=== PATIENT | female | born 1995 | race Caucasian/White ===

== ENCOUNTER 2023-03-07 16:26 | Emergency (ER) | payer BC, OTHER ==
--- OUTSIDE RECORDS SUMMARY | 2023-03-07 16:29 | XMS REPORT | Continuity of Care Document ---
:1995 Author Organization [facility] t Address [address] [place] [id number] [place] [id number] Care Team Providers Name Role Phone PCP, PATIENT DOES NOT HAVE A Primary Care Physician Unavaila CHELSEA Morin Attending Clinician Unavailable [id number] Attending Clinician Unavailable Kandis Villeda RN Attending Clinician Unavailable Genet Yu Attending Clinician GENET TABOR Attending Clinician Unavailable Doctor Unassigned, [place] Attending Clinician Unavailable Payers Payer Name Policy Type Policy Number Effective Date Expiration Date S keyon [facility] 2 [id number] 2022 00:00:00 MULTIPLAN GENERIC [id number] 2016 00:00:00 Problems Condition Condition Condition Status Onset Resolution Last Treating Co mments Source Name Details Category Date Date Treatment Clinician Date Acute Acute Disease Active 2021-06 Sushma pharyngiti pharyngiti 0-03 Se ybold s due to s due to 00:00: - other other 00 Externa specified specified l organisms organisms Non-recurr Non-recurr Disease Active 2021-06 Reynaldo palmer ent acute ent acute 0-03 Seyb old suppurativ suppurativ 00:00: - e otitis e otitis 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 left ear without without spontaneou spontaneou s rupture s rupture of of tympanic tympanic membrane membrane Pharyngiti Pharyngiti Disease Active 2022-1 K elsey s s 0-03 Seybold 00:00: - 00 Externa l Epigastric Epigastric Disease Active U nivers pain pain 8-08 ity of 00:00: Medical Branch Elevated Elevated Disease Active Unive rs blood blood 6-20 ity of sugar sugar 00:00: Medical Branch Dizziness Dizziness Disease Active Uni vers 6-20 ity of 00:00: Medical Branch Allergies, Adverse Reactions, Alerts Allergy Allergy Status Severity Reaction(s) Onset Inactive Treating Comm ents Source Name Type Date Date Clinician Codeine Propensi Active 2021-06 Sushma ty to 0-03 Seybold adverse 00:00: - reaction 00 Externa s l Ondanset Propensi Active Itching 2021-06 Poli motta ty to 0-03 Seybold adverse 00:00: - reaction 00 Externa s l CODEINE DRUG Active Unknown-Cmnt Uni vers INGREDI 9- ity of 00:00: Medical Branch METOCLOP DRUG Active Anxiety Univers RAMIDE INGREDI 9- ity of HCL 00:00: Medical Branch Codeine Propensi Active Unknown - pancreati U nivers ty to See comments 03-07 tis ity of adverse 00:00: [place] reaction 00 Medical s Branch Metoclop Propensi Active Anxiety Unive rs ramide ty to 9- ity of Hcl adverse 00:00: [place] reaction 00 Medical s Branch Social History Social Habit Start Date Stop Date Quantity Comments Source History of Sushma Johns - tobacco use External Alcohol intake 2022-04-19 2022-04-19 Lifetime Sushma Hung bold - 00:00:00 00:00:00 non-drinker External (finding) Tobacco use and 2022-03-18 2022-03-18 Smokeless tobacco Ke jose Samsonold - exposure 00:00:00 00:00:00 non-user External Exposure to 2021-12-02 2021-12-12 Not sure [facility]-CoV-2 00:00:00 13:45:00 [place] [facility] (event) [facility] Tobacco Comment 2015-12-04 2015-12-04 not consecutive- Uni versity of 00:00:00 00:00:00 just trying it [facility] Sex Assigned At [birth year] Sushma tellez - 00:00:00 00:00:00 External Smoking Status Start Date Stop Date Source Smokes tobacco daily 2022-03-18 00:00:00 Sushma Johns - External Former smoker 2015-12-04 00:00:00 2015-12-04 00:00:00 [facility] acute hospital Medications Ordered Filled Start Stop Current Ordering Indication Dosage Frequency Signature Comments Components Source Medication Medication Date Date Medication? Clinician (SIG) Name Name Amoxicillin 2021-06 Yes [id number] 1{tbl} Take 1 Sushma -Pot 1-04 tablet by Seybold Clavulanate 00:00: mouth 2 - 875-125 MG 00 times Externa oral Tablet daily l Amoxicillin 2021-06 Yes [id number] 1{tbl} Take 1 Sushma -Pot 0-03 tablet by Seybold Clavulanate 00:00: mouth 2 - 875-125 MG 00 times Externa oral Tablet daily l Benzonatate 2021-06 Yes [id number] 100mg Q.[id number] Take 1 Sushma (Tessalon 0-03 [id number] capsule S jacobbold Perles) 100 00:00: 3D (100 mg - MG oral 00 total) by Externa Capsule mouth 3 l times daily as needed for cough Amoxicillin 2021-06- No [id number] 1{tbl} Take 1 Sushma -Pot 0-03 11-04 tablet by Seybold Clavulanate 00:00: 00:00 mouth 2 - 875-125 MG 00 :00 times Externa oral Tablet daily l Benzonatate 2021-06- No [id number] 100mg Q.[id number] Take 1 Sushma (Tessalon 0-03 11-04 [id number] capsule Seybold Perles) 100 00:00: 00:00 3D (100 mg - MG oral 00 :00 total) by Externa Capsule mouth 3 l times daily as needed for cough ibuprofen 2021- No [id number] 600mg U nivers (IBU) 12-12 ity of tablet 600 19:17: 19:34 [place] mg 00 :00 [facility] ibuprofen 2021- No [id number] 600mg 600 mg, Univers (IBU) 12-12 Oral, ity of tablet 600 19:17: 19:34 ONCE, 1 Leonardo as mg 00 :00 dose, On Medical Wed Branch 12/12/21 at 1430, Routine LIPASE/PROT 2015-06 Yes Take by Uni vers EASE/AMYLAS 07-13 mouth. ity of E (CREON 16:26: [place] ORAL) 00 Medical Branch LIPASE/PROT 2015-06 Yes Take by Uni vers EASE/AMYLAS 07-13 mouth. ity of E (CREON 16:26: [place] ORAL) 00 Medical Branch LIPASE/PROT 2015-06 Yes Take by Uni vers EASE/AMYLAS 28 mouth. ity of E (CREON 16:26: [place] ORAL) 00 Medical Branch LIPASE/PROT 2015-06 Yes Take by Uni vers EASE/AMYLAS 07-13 mouth. ity of E (CREON 16:26: [place] ORAL) 00 Medical Branch NUVARING Yes Univers 0.12-0.015 6-02 ity of mg/24 hr 00:00: [place] vaginal 00 Medical insert Branch NUVARING Yes Univers 0.12-0.015 6-02 ity of mg/24 hr 00:00: [place] vaginal 00 Medical insert Branch NUVARING 0 Yes Univers 0.12-0.015 6-02 ity of mg/24 hr 00:00: [place] vaginal 00 Medical insert Branch NUVARING 0 Yes Univers 0.12-0.015 6-02 ity of mg/24 hr 00:00: [place] vaginal 00 Medical insert Branch Vital Signs Vital Name Observation Time Observation Value Comments Source Systolic blood 2022-04-19 20:23:00 94 mm[Hg] Sushma Johns - pressure External Diastolic blood 2022-04-19 20:23:00 64 mm[Hg] Poli Johns - pressure External Heart rate 2022-04-19 20:23:00 92 /min Sushma gutierrez - External Body temperature 2022-04-19 20:23:00 36.56 Jessica Jessica Johns - External Respiratory rate 2022-04-19 20:23:00 14 /min Jessica oJhns - External Body height 2022-04-19 20:23:00 160 cm Sushma S eybold - External Body weight 2022-04-19 20:23:00 72.576 kg Sushma Nguyen eybold - External BMI 2022-04-19 20:23:00 28.34 kg/m2 Sushma S eybold - External Systolic blood 2022-03-18 16:36:00 139 mm[Hg] Sushma Seybold - pressure External Diastolic blood 2022-03-18 16:36:00 76 mm[Hg] Poli y Seybold - pressure External Heart rate 2022-03-18 16:36:00 110 /min Sushma S eybold - External Body temperature 2022-03-18 16:36:00 37.22 Jessica Jessica ey Seybold - External Respiratory rate 2022-03-18 16:36:00 14 /min Jessica james Seybold - External Body height 2022-03-18 16:36:00 160 cm Sushma Nguyen eybold - External Body weight 2022-03-18 16:36:00 74.118 kg Sushma Nguyen eybold - External BMI 2022-03-18 16:36:00 28.95 kg/m2 Sushma Nguyen eybold - External Oxygen saturation in 2022-03-18 16:36:00 99 /min Sushma Johns - Arterial blood by External Pulse oximetry Systolic blood 2021-12-12 19:00:00 113 mm[Hg] Univer sity of [facility] Diastolic blood 2021-12-12 19:00:00 77 mm[Hg] Unive rsity of [facility] Heart rate 2021-12-12 19:00:00 123 /min General acute hospital Body temperature 2021-12-12 19:00:00 38.56 Jessica Univ ersity of [facility] Respiratory rate 2021-12-12 19:00:00 18 /min [facility] [place] [facility] Body height 2021-12-12 19:00:00 160 cm General acute hospital Body weight 2021-12-12 19:00:00 71.804 kg General acute hospital BMI 2021-12-12 19:00:00 28.04 kg/m2 General acute hospital Oxygen saturation in 2021-12-12 19:00:00 99 /min [facility] blood by [facility] Pulse oximetry Branch Procedures Procedure Date / Time Performed Performing Clinician Sourc e POCT MOLECULAR STREP 2021-12-12 19:15:00 Genet Tabor rsity of [facility] CONSENT/REFUSAL FOR 2021-12-12 18:49:01 Doctor Unassigned, No Un i[facility]ity [facility] DIAGNOSIS AND Name Medical [place] TREATMENT Encounters Start End Encounter Admission Attending Care Care Encounter Source Date/Time Date/Time Type Type Clinicians Facility Department ID 2022-05-06 2022-05-06 Outpatient SUSHMA HERNDON [id number] Sushma 00:00:00 00:00:00 CHELSEA Seybol bjorn 2022-04-19 2022-04-19 Outpatient SUSHMA HERNDON [id number] Sushma 15:30:00 15:30:00 CHELSEA Mercerybol bjorn 2022-03-18 2022-03-18 Outpatient [id number] SUSHMA OTT [id number] Sushma 17:05:00 17:05:00 Seybol bjorn 2022-03-18 2022-03-18 Outpatient SUSHMA HERNDON [id number] Sushma 11:30:00 11:30:00 CHELSEA Seybol bjorn 2021-12-13 2021-12-13 Letter JOSETTE Villeda [id number] Univers 00:00:00 00:00:00 (Out) Kandis MCKINNON [id number] it y of [facility] [id number] Leonardo as [id number] [place] [address] Branch 2021-12-12 2021-12-12 Urgent [facility] [id number] Univers 14:20:00 14:35:48 Care [facility] [id number] i ty of [place] [id number] Leonardo as JOANNA?BLEA [phone] [address] MEDICAL OFFICE BUILDING 2021-12-12 2021-12-12 Outpatient R [facility] [id number] Univers 14:20:00 14:35:48 GENET bah o f [facility] 2021-12-12 2021-12-12 Tristan FINCH [id number] Univers 00:00:00 00:00:00 (Out) Unassigned, INO [id number] ity of [facility] [id number] Leonardo as [id number] [facility] 044 Branch 2021-12-12 2021-12-12 Orders Doctor JOSETTE [id number] Univers 00:00:00 00:00:00 Only Unassigned, INO [id number] ity of [facility] [id number] Leonardo as [id number] [facility] 009 Branch Results Test Description Test Time Test Comments Results Result Comments Source POCT MOLECULAR STREP 2021-12-12 19:23:09 Test Item Value Reference Range Interpretation Comme nts POCT Molecular Strep (test code = 25753-5) Negative Negative Lab Interpretation (test code = 18800-3) Normal [facility] [place]
[2023-03-07] MEDS ORDERED: METOCLOPRAMIDE 10 MG/2mL INJ ONE (17:11)
[2023-03-07] MEDS ORDERED: MECLIZINE HCL 12.5 MG TAB ONE (17:11)
[2023-03-07] MEDS ORDERED: NA CHLORIDE 0.9% 1,000 ML ONE ×2 (17:11→18:37)
[2023-03-07] MEDS ORDERED: ONDANSETRON 4 MG/2 ML VIAL ONE (17:21)
[2023-03-07 17:58] LABS: Absolute Lymphocytes (CBC) 2.5 K/uL (0.7-4.9); Hematocrit 40.1 % (36.0-45.0); Lymphocytes % 34.1 % (15.3-44.8); MCV 81.8 fL (80-100); MPV 9.1 fL (7.6-11.3); Platelets 214 thou/uL (152-406)
[2023-03-07 18:13] LABS: Magnesium 2.4 mg/dL (1.6-2.4); Potassium 3.7 mEq/L (3.5-5.1)
[2023-03-07] MEDS ORDERED: SCOPOLAMINE HYDROBROMIDE PATCH TD ONE (18:30)
[2023-03-07 18:46] LABS: Specific Gravity 1.015 (1.005-1.030)
[2023-03-07 19:00] LABS: Specific Gravity 1.015 (1.005-1.030); Urine Bacteria None Seen /HPF (<20); Urine Bilirubin NEGATIVE (Negative); Urine Blood Negative (Negative); Urine Clarity Turbid (Clear); Urine Color Light-Yellow (Yellow); Urine Glucose NEGATIVE (Negative); Urine Protein NEGATIVE (Negative); Urine RBC <5 /HPF (None Seen); Urine Urobilinogen Normal (Normal); Urine pH 6.5 (5.0-7.0)
--- NOTE | 2023-03-07 19:28 | RAD REPORT ---
EXAM DESCRIPTION: CT - Head Brain Wo Cont - 03/07/2023 7:16 pm CLINICAL HISTORY: Dizziness COMPARISON: none TECHNIQUE: Computed axial tomography of the head was obtained. IV contrast was not requested. All CT scans are performed using dose optimization technique as appropriate and may include automated exposure control or mA/KV adjustment according to patient size. FINDINGS: An intracranial bleed is not seen The ventricles are normal in caliber No significant hypodense areas within the brain visualized No extra-axial fluid collection is noted. Fluid within the sinuses/ mastoids is not seen IMPRESSION: No acute intracranial abnormality is seen If patient's symptoms persist MRI of the brain would be recommended
--- NOTE | 2023-03-07 20:05 | EDPHYS ---
Physician Documentation [facility] Name: Rk Delgado Age: 27 yrs Sex: Female : 1995 Arrival Date: 03/07/2023 Time: 16:26 Bed 14 Private MD: ED Physician hGanshyam Lundberg HPI: 03/07 16:50 This 27 yrs old Female presents to ER via Wheelchair with complaints of Dizziness, cp Nausea. 16:50 The patient presents with dizziness, lightheadedness, feeling off balance. cp 16:50 Onset: The symptoms/episode began/occurred this morning, upon awakening at 0500. cp 16:50 Associated signs and symptoms: Pertinent positives: confusion, headache, nausea, cp Pertinent negatives: blurred vision, focal weakness, vomiting. Severity of symptoms: in the emergency department the symptoms are unchanged despite home interventions. Patient's baseline: Neuro: alert and fully oriented, Motor: no deficits, Ambulation: walks without assistance, Speech: normal. 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 - Social history:: Smoking status: Reported history of juuling and/or vaping. ROS: 16:55 Constitutional: Negative for body aches, chills, fever, poor PO intake, cp 16:55 Eyes: Negative for injury, pain, redness, and discharge, cp 16:55 ENT: Negative for drainage from ear(s), ear pain, sore throat, difficulty swallowing, difficulty handling secretions, 16:55 Cardiovascular: Negative for chest pain, palpitations, 16:55 Respiratory: Negative for cough, shortness of breath, wheezing, 16:55 Abdomen/GI: Positive for nausea, Negative for abdominal pain, vomiting, diarrhea, constipation, 16:55 Skin: Negative for rash, 16:55 Neuro: Positive for dizziness, headache, Negative for altered mental status, syncope, near syncope, weakness, 16:55 All other systems are negative, Exam: 16:55 Head/Face: Normocephalic, atraumatic. cp 16:55 Constitutional: The patient appears in no acute distress, alert, awake, non-toxic, well developed, well nourished, 16:55 Eyes: Periorbital structures: appear normal, Pupils: equal, round, and reactive to light and accomodation, Extraocular movements: intact throughout, Conjunctiva: normal, no exudate, no injection, Sclera: no appreciated abnormality, Lids and lashes: appear normal, bilaterally, 16:55 ENT: External ear(s): are unremarkable, Nose: is normal, Mouth: Lips: moist, Oral mucosa: pink and intact, moist, Posterior pharynx: is normal, airway is patent, no erythema, no exudate, 16:55 Neck: ROM/movement: is normal, is supple, without pain, no range of motions limitations, 16:55 Chest/axilla: Inspection: normal, 16:55 Cardiovascular: Rate: normal, Rhythm: regular, 16:55 Respiratory: the patient does not display signs of respiratory distress, Respirations: normal, no use of accessory muscles, no retractions, labored breathing, is not present, Breath sounds: are clear throughout, no decreased breath sounds, no stridor, no wheezing, 16:55 Abdomen/GI: Exam negative for discomfort, distension, guarding, Inspection: abdomen appears normal, 16:55 Neuro: Orientation: to person, place \T\ time. Mentation: is normal, Cerebellar function: is grossly normal, Motor: moves all fours, strength is normal, Sensation: is normal, 18:57 ECG was reviewed by the Attending Physician. cp Vital Signs: 16:42 BP 117 / 83; Pulse 90; Resp 18; Temp 98.4; Pulse Ox 100% on R/A; Weight 70.31 kg; cm10 Height 5 ft. 3 in. ; Pain 2/10; 19:45 BP 119 / 79 Supine; Pulse 70; ap3 19:50 BP 117 / 81 Sitting; Pulse 78; ap3 20:05 BP 110 / 75 Standing; Pulse 74; ap3 16:42 Body Mass Index 27.46 (70.31 kg, 160.02 cm) cm10 16:42 Pain Scale: Adult cm10 MDM: 16:48 Patient medically screened. cp 17:00 Differential diagnosis: cardiac arrhythmia, hypovolemia, idiopathic dizziness, cp , vertigo. 20:02 Data reviewed: vital signs, nurses notes, lab test result(s), EKG, radiologic studies, CT scan, plain films. 20:02 I considered the following discharge prescriptions or medication management in the emergency department Medications were administered in the Emergency Department. See MAR. Counseling: I had a detailed discussion with the patient and/or guardian regarding the historical points, exam findings, and any diagnostic results supporting the discharge/admit diagnosis, lab results, radiology results, the need for outpatient follow up, a family practitioner, to return to the emergency department if symptoms worsen or persist or if there are any questions or concerns that arise at home. Response to treatment: the patient's symptoms have markedly improved after treatment, and as a result, I will discharge patient. 03/07 16:44 Order name: Basic Metabolic Panel; Complete Time: 18:16 03/07 19:35 Interpretation: Normal except: CL 109. 03/07 16:44 Order name: CBC with Diff; Complete Time: 18:16 03/07 19:35 Interpretation: Normal except: RBC 4.90; MCH 26.9. 03/07 16:44 Order name: Magnesium; Complete Time: 18:16 03/07 16:44 Order name: COVID-19 SARS RT PCR; Complete Time: 19:34 03/07 16:44 Order name: Influenza Screen (a \T\ B); Complete Time: 19:34 03/07 18:19 Order name: Urinalysis W/Microscopic; Complete Time: 19:34 03/07 19:35 Interpretation: Normal except: [facility] Turbid; UESTR 25; BYST Trace. 03/07 18:19 Order name: PREGU; Complete Time: 19:34 03/07 18:19 Order name: CT Head Brain wo Cont; Complete Time: 19:34 03/07 16:44 Order name: EKG; Complete Time: 16:44 03/07 16:44 Order name: Orthostatics; Complete Time: 20:04 03/07 16:44 Order name: Cardiac monitoring; Complete Time: 18:44 03/07 16:44 Order name: EKG - Nurse/Tech; Complete Time: 18:44 03/07 16:44 Order name: IV Saline Lock; Complete Time: 18:08 03/07 16:44 Order name: Labs collected and sent; Complete Time: 18:08 03/07 16:44 Order name: O2 Per Protocol; Complete Time: 16:48 cp 03/07 16:44 Order name: O2 Sat Monitoring; Complete Time: 16:48 cp 03/07 19:36 Order name: Misc. Order: ambulate patient; Complete Time: 19:58 cp EC:57 Rate is 68 beats/min. Rhythm is regular. ND interval is normal. QRS interval is normal. cp QT interval is normal. Interpreted by me. Reviewed by me. Administered Medications: 17:12 Drug: Meclizine PO 25 mg PO once Route: PO; ap3 18:20 Follow up: Response: No adverse reaction ap3 17:12 Not Given (pt reports allergyy): [id number] mg IVP once; over 1 to 2 minutes ap3 17:45 Drug: Ondansetron IVP 4 mg IVP once; over 2 minutes Route: IVP; Site: right antecubital;ph 18:19 Follow up: Response: No adverse reaction ap3 17:46 Drug: NS 0.9% IV 1000 ml IV at 1 bolus Per protocol; 1000 mL bolus Route: IV; Rate: 1 ph bolus; Site: right antecubital; 18:35 Follow up: IV Status: Completed infusion ap3 18:34 Drug: NS 0.9% IV 1000 ml IV at 1 bolus Per protocol; 1000 mL bolus Route: IV; Rate: 1 ap3 bolus; Site: right antecubital; 18:44 Drug: scopolamine Patch 1 patches Transdermal once Route: Transdermal; Site: affected ap3 area; 20:05 Not Given (Patient Refused): diazepam2 mg IVP once; if test negative ap3 Disposition Summary: 03/07/23 20:04 Discharge Ordered Notes: Location: Home cp Problem: new cp Symptoms: have improved cp Condition: Stable cp Diagnosis - Dizziness and giddiness cp - Nausea cp - Headache cp Followup: cp - With: Private Physician - When: 2 - 3 days - Reason: Recheck today's complaints Discharge Instructions: - Discharge Summary Sheet cp - Dizziness cp - General Headache Without Cause cp - Nausea, Adult cp Forms: - Medication Reconciliation Form cp - Thank You Letter cp - Antibiotic Education cp - Prescription Opioid Use cp - Patient Portal Instructions cp - Leadership Thank You Letter cp Prescriptions: - Ibuprofen 800 mg Oral Tablet - take 1 tablet ORAL route every 8 hours As needed take with food; 30 tablet; cp Refills: 0, Product Selection Permitted - Meclizine 25 mg Oral Tablet - take 1 tablet ORAL route every 8 hours As needed; 30 tablet; Refills: 0, cp Product Selection Permitted - Zofran 4 mg Oral Tablet - take 1 tablet ORAL route every 12 hours As needed; 20 tablet; Refills: 0, cp Product Selection Permitted Signatures: Dispatcher [employer] EDGayla Luciano, DIRECTOR OF HOME ECONOMICS-C DIRECTOR OF HOME ECONOMICS-Silviow Martha Amezcua, RN RN Ghanshyam Stevens PA PA cp Prokisch, Amanda, RN RN ap3 Dorita Mancia RN RN cm10
--- NOTE | 2023-03-07 20:05 | ER ---
Nurse's Notes [facility] Name: Rk Delgado Age: 27 yrs Sex: Female : 1995 Arrival Date: 03/07/2023 Time: 16:26 Bed 14 Private MD: Diagnosis: Dizziness and giddiness;Nausea;Headache Presentation: 03/07 16:42 Chief complaint: Patient states: woke up this morning with nausea and dizziness. Pt cm10 states that she feels like she is having some brain fog and things didn't make sense. Pt states that she went to bed last night at midnight and was fine. Woke up at 0500 with dizziness. Coronavirus screen: Vaccine status: Patient reports being unvaccinated. Client denies travel out of the [place] in the last 14 days. Ebola Screen: Patient denies travel to an Ebola-affected area in the 21 days before illness onset. No symptoms or risks identified at this time. Initial Sepsis Screen: Does the patient meet any 2 criteria? No. Patient's initial sepsis screen is negative. Does the patient have a suspected source of infection? No. Patient's initial sepsis screen is negative. Risk Assessment: Do you want to hurt yourself or someone else? Patient reports no desire to harm self or others. Onset of symptoms was March 07, 2023. 16:42 Method Of Arrival: Wheelchair cm10 16:42 Acuity: DUY 3 cm10 Triage Assessment: 16:44 General: Appears in no apparent distress. comfortable, Behavior is calm, cooperative. cm10 Pain: Complains of pain in head. Neuro: No deficits noted. Level of Consciousness is awake, alert, obeys commands, Oriented to person, place, time, situation, Reports dizziness, since this morning headache. Respiratory: No deficits noted. Airway is patent Respiratory effort is even, unlabored, Respiratory pattern is regular, symmetrical. 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 - Social history:: Smoking status: Reported history of juuling and/or vaping. Screenin:13 [facility] ED Fall Risk Assessment (Adult) History of falling in the last 3 months, ap3 including since admission No falls in past 3 months (0 pts). Abuse screen: Denies threats or abuse. Nutritional screening: No deficits noted. Tuberculosis screening: No symptoms or risk factors identified. Assessment: 19:42 Reassessment: Patient and/or family updated on plan of care and expected duration. Pain ap3 level reassessed. Patient is alert, oriented x 3, equal unlabored respirations, skin warm/dry/pink. Vital Signs: 16:42 BP 117 / 83; Pulse 90; Resp 18; Temp 98.4; Pulse Ox 100% on R/A; Weight 70.31 kg; cm10 Height 5 ft. 3 in. ; Pain 2/10; 19:45 BP 119 / 79 Supine; Pulse 70; ap3 19:50 BP 117 / 81 Sitting; Pulse 78; ap3 20:05 BP 110 / 75 Standing; Pulse 74; ap3 16:42 Body Mass Index 27.46 (70.31 kg, 160.02 cm) cm10 16:42 Pain Scale: Adult cm10 ED Course: 16:29 Patient arrived in ED. rg4 16:30 Ghanshyam Jensen PA is PHCP. cp 16:30 Geovanny Ventura MD is Attending Physician. cp 16:44 Triage completed. cm10 16:45 Arm band placed on Patient placed in an exam room, on a stretcher. cm10 16:46 Analisa Myers, ALICIA is Primary Nurse. ap3 17:45 Ghanshyam Lundberg MD is Attending Physician. cp 18:35 PREGU Sent. ap3 18:35 Urinalysis W/Microscopic Sent. ap3 19:17 CT Head Brain wo Cont In Process Unspecified. EDMS 20:13 No provider procedures requiring assistance completed. IV discontinued, intact, ap3 bleeding controlled, No redness/swelling at site. Pressure dressing applied. 20:14 Patient has correct armband on for positive identification. Bed in low position. Call ap3 light in reach. Side rails up X 1. Adult w/ patient. Provided Education on: discharge instructions. Pulse ox on. NIBP on. Administered Medications: 17:12 Drug: Meclizine PO 25 mg PO once Route: PO; ap3 18:20 Follow up: Response: No adverse reaction ap3 17:12 Not Given (pt reports allergyy): [id number] mg IVP once; over 1 to 2 minutes ap3 17:45 Drug: Ondansetron IVP 4 mg IVP once; over 2 minutes Route: IVP; Site: right antecubital;ph 18:19 Follow up: Response: No adverse reaction ap3 17:46 Drug: NS 0.9% IV 1000 ml IV at 1 bolus Per protocol; 1000 mL bolus Route: IV; Rate: 1 ph bolus; Site: right antecubital; 18:35 Follow up: IV Status: Completed infusion ap3 18:34 Drug: NS 0.9% IV 1000 ml IV at 1 bolus Per protocol; 1000 mL bolus Route: IV; Rate: 1 ap3 bolus; Site: right antecubital; 18:44 Drug: scopolamine Patch 1 patches Transdermal once Route: Transdermal; Site: affected ap3 area; 20:05 Not Given (Patient Refused): diazepam2 mg IVP once; if test negative ap3 Medication: 20:22 VIS not applicable for this client. ap3 Outcome: 20:04 Discharge ordered by MD. cp 20:13 Discharged to home ambulatory, with family, ap3 20:13 Condition: good 20:13 Discharge instructions given to patient, family, Instructed on discharge instructions, follow up and referral plans. medication usage, Demonstrated understanding of instructions, follow-up care, medications, Prescriptions given X 3, 20:23 Patient left the ED. ap3 Signatures: Dispatcher [employer] EDMartha Connell RN RN ph Page, Corey, PA PA cp Garcia, Rubi rg4 Analisa Myers RN RN ap3 Dorita Mancia RN RN cm10
[2023-03-07 21:03] VITALS: TEMP 98.4; O2SAT 100
[2023-03-07 21:15] VITALS: BP 110/75
--- NOTE | 2023-03-10 12:37 | EKG ---
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
== END 2023-03-07 20:23 | disposition home or self-care (01) ==
LOC: ER 16:26
DX: R42 Dizziness and giddiness (principal); R11.0 Nausea; R51.9 Headache, unspecified; Z20.822 Contact with and (suspected) exposure to COVID-19; Z88.5 Allergy status to narcotic agent; Z88.8 Allergy status to other drugs, medicaments and biological substances; Z91.048 Other nonmedicinal substance allergy status
CPT/HCPCS: 96361; 85025; 81001; 80048; 36415; 83735; 81025; 87635; 87804 ×2; 70450; 96374; 99284; J8597; J2405; J7030 ×2; 93005; J2765